=== PATIENT | male | born 1955 | race Caucasian/White ===

== ENCOUNTER → 2020-07-23 07:57 | Outpatient (CLI) | payer OTHER, SELFPAY ==
--- NOTE | 2020-07-23 08:17 | DI.ECHO.S_ITS ---
Echocardiogram Report + + :Name: LEANDRA CRUZ Study Date: 07/23/2020 Height: 67 in : :[facility] Weight: 170 lb : : Gender: Male BSA: 1.9 m2 : :: 1955 Age: 65 yrs BP: 130/68 mmHg: :Reason For Study: MEDICAL EXAM : : Performed By: Milan Calvert : :Referring: DUSTIN LOPEZ : + + Interpretation Summary The left ventricle is normal in size. Left ventricular systolic function is normal. The ejection fraction is estimated to be 60-65%. There is inferior wall akinesis. There is basal posterolateral wall hypokinesis. Thin and bright LV wall segment suggests a myocardial infarction. Diastolic parameters suggest a relaxation abnormality of the left ventricle, consistent with probable normal filling pressures. The right ventricle is normal in size and function. Pulmonary artery pressures cannot be estimated because of the lack of a measurable TR jet velocity. The left atrium is mildly dilated. The right atrium is normal in size. There is no significant valvular heart disease. The aortic root is normal size. Procedure: A two-dimensional transthoracic echocardiogram with color flow and Doppler was performed. The study quality was technically good. There is no prior echocardiogram noted for this patient. The patient was in normal sinus rhythm during the exam. Left Ventricle: The left ventricle is normal in size. There is normal left ventricular wall thickness. Left ventricular systolic function is normal. The ejection fraction is estimated to be 60-65%. There is inferior wall akinesis. There is basal posterolateral wall hypokinesis. Thin and bright LV wall segment suggests a myocardial infarction. Diastolic parameters suggest a relaxation abnormality of the left ventricle, consistent with probable normal filling pressures. Right Ventricle: The right ventricle is normal in size and function. Atria: The left atrium is mildly dilated. The right atrium is normal in size. The interatrial septum is intact with no evidence for an atrial septal defect. Mitral Valve: The mitral valve is normal in structure and function. There is trace mitral regurgitation. Aortic Valve: The aortic valve is trileaflet. The aortic valve opens well. No aortic regurgitation is present. Tricuspid Valve: The tricuspid valve is normal in structure and function. No tricuspid regurgitation. Pulmonary artery pressures cannot be estimated because of the lack of a measurable TR jet velocity. Pulmonic Valve: The pulmonic valve is normal in structure and function. There is no pulmonic valvular regurgitation. There is no significant valvular heart disease. Great Vessels: The aortic root is normal size. The dimensions of the ascending aorta are normal. The pulmonary artery is normal size. The IVC is of normal diameter and collapses greater than 50% with a sniff. This suggests a low right atrial pressure of 3 mm Hg. Pericardium/ Pleura There is no pericardial effusion. There is no pleural effusion. MMode/2D Measurements & Calculations LVIDd: 5.1 cm LVOT diam: 2.2 cm LVIDs: 3.7 cm Ao root diam: 2.9 cm FS: 27.5 % asc Aorta Diam: 3.0 cm EPSS: 0.29 cm Ao Arch Diam (Prox Trans): 2.2 cm IVSd: 0.72 cm LVPWd: 1.0 cm LV lee. diameter/BSA (cm/m^2): 2.7 LV sys. diameter/BSA (cm/m^2): 2.0 LA dimension: 4.0 cm RA long axis: 4.6 cm LA A2 area: 19.0 cm2 RA area: 13.6 cm2 LA A4 area: 21.5 cm2 RA vol: 34.5 ml LA length (vol): 5.5 cm RA : 18.3 ml/m2 LA vol: 62.7 ml IVC diam: 2.0 cm LA vol index: 33.2 ml/m2 RVD1 (basal): 3.3 cm RVD2 (mid): 3.5 cm Doppler Measurements & Calculations Ao V2 max: 149.2 cm/sec LVOT Max Leander: 118.0 cm/sec Ao V2 mean: 104.0 cm/sec LV V1 max P.6 mmHg Ao max P.9 mmHg LV V1 VTI: 22.8 cm Ao mean P.8 mmHg HAKEEM(I,D): 2.8 cm2 Ao V2 VTI: 30.3 cm HAKEEM(V,D): 2.9 cm2 sev ratio: 0.75 HAKEEM indexed to BSA (cm^2/m^2): 1.5 MV E max leander: 69.1 cm/sec PA V2 max: 105.4 cm/sec MV A max leander: 100.6 cm/sec PA V2 mean: 80.7 cm/sec MV E/A: 0.69 PA mean P.8 mmHg Med Peak E' Leander: 4.3 cm/sec PA pr(Accel): 24.2 mmHg E/E' med: 16.0 Lat Peak E' Leander: 6.7 cm/sec E/E' lat: 10.2 E/e' average: 13.1 MV dec time: 0.14 sec SV(LVOT): 83.6 ml Reading Physician:[id number] PM
== END ==
PROVIDERS: PCP Emergency Medicine Emergency Medical Services; Referring Provider Physician Assistant; Visit Provider Physician Assistant
DX: I25.9 Chronic ischemic heart disease, unspecified (principal)
CPT/HCPCS: 93306